=== PATIENT | female | born 2000 | race Caucasian/White ===

== ENCOUNTER 2021-12-18 13:15 | Inpatient (IN) | payer MEDICAID ==
[~2021-12-18] VITALS: Ht 157.5 cm; Wt 71.6 kg
[2021-12-18] VITALS (12 sets, daily range): BP systolic 115–142; BP diastolic 59–96
[2021-12-18] MEDS ORDERED: propofol 1000mg/100ml bottle 100 ML IV ONE (17:05)
[2021-12-18] MEDS ORDERED: FENTANYL CITRATE/D5W/PF 100 ML IV PRN (17:10)
[2021-12-18] MEDS ORDERED: acetylcysteine 200 MG/ml 4ml vial INH ONE (17:25)
--- NOTE | 2021-12-18 17:27 | NUR ---
Patients sister called to leave her number: Cora Joseph: [phone]
[2021-12-18] MEDS: FENTANYL-0.9 % NACL/PF 100 ML IV PRN ×2 (17:29→21:32)
[2021-12-18] MEDS ORDERED: ondansetron/PF 4mg/2ml inj IV PRN (18:30)
[2021-12-18] MEDS ORDERED: magnesium hydroxide 30ml (MOM) UD suspension PO PRN (18:30)
[2021-12-18] MEDS ORDERED: potassium Cl 20 mEq SR tablet PO PRN (18:30)
[2021-12-18] MEDS ORDERED: mag hydrox/Alum hydrox/simeth 30ml oral suspension PO PRN (18:30)
[2021-12-18] MEDS ORDERED: acetaminophen 325mg tablet PO PRN (18:30)
[2021-12-18] MEDS ORDERED: magnesium Cl slow-release 64mg tablet PO PRN (18:30)
[2021-12-18] MEDS ORDERED: magnesium 4gm in 100ml NS 100 ML IV PRN (18:30)
[2021-12-18] MEDS ORDERED: magnesium 2GM in 50ml NS 50 ML IV PRN (18:30)
--- NOTE | 2021-12-18 18:30 | NUR ---
Patient was wheeled into the unit by E[facility] in a hemodynamically stable condition as vital signs were within normal range,patient is moderately sedated with jad 100mcg/kg/hr, and propofol 12mcg/kg/min, pupil reactive and equal, patient on a ventilatory support with a size 7 ET tube, 24cm on lip, patient is a PRVC MODE, inspiratory wheeze reported and noted on the lower lobe with thick secretion.Patient is in sinus rhythm. Orogastric tube connected to intermittent drainage on admission. Patient has a cruz catheter with adequate output. Skin appears intact but blanching noted on the heel. 17;[address] Pagan for possible atelectasis of the left lower lobe, a total of 12mcg propofol bolus and 100mcg of jad bolus administered as per Doctor's order, very thick secretion noted.
[2021-12-18] MEDS: dextrose 5%-normal saline 1,000 ML IV SCH (19:12)
[2021-12-18 19:15] LABS: MAGNESIUM 1.9 MG/DL (1.5-2.4); POTASSIUM 3.3 MMOL/L (3.5-5.1)
[2021-12-18 19:17] LABS: ABG BASE EXCESS -2.7 mmol/L (-2.0-2.0); ABG HCO3 21.8 mmol/L (22.0-26.0); ABG OXYGEN SATURATION 97.2 % (94-97); ABG PCO2 (T) 36.6 mmHg (32.0-45.0); ABG PO2 (T) 96.6 mmHg (75.0-100.0); ALLEN'S TEST POSITIVE; FCOHb 0.3 % (0.0-3.9); FMetHb 0.5 % (0.0-1.5); FO2Hb 96.4 % (94-97); PATIENT TEMPERATURE 36.6; PEEP 8 cm H2O; RESPIRATORY RATE 16 b/min; TIDAL VOLUME 400 mL; TOTAL HEMOGLOBIN 13.2 G/dl (12.0-16.0)
[2021-12-18] MEDS ORDERED: PARO40TA4 PO (19:20)
[2021-12-18] MEDS ORDERED: AMIT-189 PO (19:20)
[2021-12-18] MEDS ORDERED: PARO20TA6 PO (19:20)
[2021-12-18] MEDS ORDERED: ALBU17AE26 PO (19:23)
[2021-12-18] MEDS: potassium CL 10mEq/100ml bag 100 ML IV PRN ×2 (19:31→20:17)
[2021-12-18] MEDS: K and/or MAG REPLACEMENT MC SCH (19:31)
[2021-12-18] MEDS: docusate sod 100mg capsule PO SCH (19:40)
[2021-12-18] MEDS: albuterol 2.5 MG/3 ML nebule NEB SCH (20:26)
[2021-12-18] MEDS: acetylcysteine 200 MG/ml 4ml vial INH SCH (20:26)
[2021-12-18] MEDS: albuterol 2.5 MG/3 ML nebule NEB PRN (20:26)
[2021-12-19] VITALS (28 sets, daily range): BP systolic 102–161; BP diastolic 46–105
[2021-12-19] MEDS ORDERED: propofol 1000mg/100ml bottle 100 ML IV SCH (00:10)
[2021-12-19] MEDS ORDERED: propofol 1000mg/100ml bottle 100 ML IV ONE (00:55)
[2021-12-19] MEDS: FENTANYL-0.9 % NACL/PF 100 ML IV PRN ×5 (01:34→21:48)
[2021-12-19 02:31] LABS: BASOPHILS # (AUTO) 0.1 X10'3 (0-0.2); BASOPHILS % (AUTO) 0.4 % (0-1); EOSINOPHILS # (AUTO) 0.4 X10'3 (0-0.9); EOSINOPHILS % (AUTO) 3.1 % (0-6); HEMATOCRIT 34.4 % (35.0-45.0); HEMOGLOBIN 11.4 g/dl (12.0-16.0); LYMPHOCYTES # (AUTO) 2.2 X10'3 (1.1-4.8); LYMPHOCYTES % (AUTO) 16.9 % (21-51); MEAN CORPUSCULAR HEMOGLOBIN 32.4 PG (27.0-31.0); MEAN CORPUSCULAR HGB CONC 33.1 g/dL (33.0-36.5); MEAN CORPUSCULAR VOLUME 97.8 FL (78-98); MEAN PLATELET VOLUME 6.4 FL (7.4-10.4); MONOCYTES % (AUTO) 7.6 % (2-12); NEUTROPHILS # (AUTO) 9.4 X10'3 (1.8-7.7); PLATELET COUNT 271 X10'3 (140-440); RED BLOOD COUNT 3.52 X10'6 (4.20-5.60); RED CELL DISTRIBUTION WIDTH 14.2 % (11.5-14.5)
[2021-12-19 02:51] LABS: ALANINE AMINOTRANSFERASE 16 U/L (12-78); ALBUMIN 2.3 G/DL (3.4-5.0); ALBUMIN/GLOBULIN RATIO 0.8 (1.1-1.5); ALKALINE PHOSPHATASE 63 IU/L (46-116); ANION GAP 7 (8-16); ASPARTATE AMINO TRANSFERASE 17 U/L (10-37); BILIRUBIN,TOTAL 0.2 MG/DL (0.1-1.0); BLOOD UREA NITROGEN 4 MG/DL (7-18); BUN/CREATININE RATIO 6.7 (6.6-38.0); CALCIUM 7.4 MG/DL (8.5-10.1); CHLORIDE 112 MMOL/L (99-107); GLUCOSE 92 MG/DL (70-104); MAGNESIUM 1.8 MG/DL (1.5-2.4); PHOSPHORUS 2.8 MG/DL (2.3-4.5); POTASSIUM 3.3 MMOL/L (3.5-5.1); SODIUM 144 MMOL/L (135-145); TOTAL PROTEIN 5.3 G/DL (6.4-8.2); TRIGLYCERIDES 124 MG/DL (20-135); eGFR > 90 ML/MIN
[2021-12-19] MEDS: albuterol 2.5 MG/3 ML nebule NEB SCH ×4 (02:54→21:50)
[2021-12-19] MEDS: acetylcysteine 200 MG/ml 4ml vial INH SCH (02:54)
[2021-12-19] MEDS: albuterol 2.5 MG/3 ML nebule NEB PRN (02:54)
[2021-12-19 03:08] LABS: ABG BASE EXCESS 0.8 mmol/L (-2.0-2.0); ABG HCO3 25.1 mmol/L (22.0-26.0); ABG OXYGEN SATURATION 97.3 % (94-97); ABG PCO2 (T) 39.4 mmHg (32.0-45.0); ALLEN'S TEST POSITIVE; FCOHb 0.3 % (0.0-3.9); FMetHb 0.4 % (0.0-1.5); FO2Hb 96.6 % (94-97); PATIENT TEMPERATURE 37.4; PEEP 8 cm H2O; RESPIRATORY RATE 16 b/min; TIDAL VOLUME 400 mL; TOTAL HEMOGLOBIN 12.4 G/dl (12.0-16.0)
[2021-12-19] MEDS ORDERED: thiamine 100mg/ml 2ml inj. IV ONE (04:35)
[2021-12-19] MEDS: potassium CL 10mEq/100ml bag 100 ML IV PRN ×2 (05:32→07:23)
[2021-12-19] MEDS: pantoprazole 40MG/NS 100ML BAG 100 ML IV SCH (07:19)
[2021-12-19] MEDS: enoxaparin 40mg/0.4ml syringe SUBCUT SCH (07:21)
[2021-12-19] MEDS: dextrose 5%-normal saline 1,000 ML IV SCH ×2 (07:22→21:48)
[2021-12-19] MEDS: docusate sod 100mg capsule PO SCH ×2 (07:22→20:33)
[2021-12-19] MEDS ORDERED: MVI, adult No.4 with vit. K 10 ML in dextrose 5% water 500ml 500 ML IV SCH ×2 (08:00)
[2021-12-19] MEDS: K and/or MAG REPLACEMENT MC SCH ×2 (08:00→20:00)
[2021-12-19] MEDS: dexmedetomidine/D5W 100mL 100 ML IV SCH ×3 (08:54→20:32)
--- NOTE | 2021-12-19 11:50 | NUR ---
I have reviewed assessment by research intern Addendum: 12/19/21 at [address] disregard
--- NOTE | 2021-12-19 11:50 | NUR ---
Initial: Pt admit dx overdose, suicide attempt, atelectasis, and acute respiratory failure w/ a hx of anxiety and depression per EMR. Pt is mechanically ventilated, and per MD at rounds pt is being titrated off of propofol and to be extubated today. Pt is currently NPO, though recommend advancing to Regular diet. Also recommend Folic acid and Thiamine supplementation given hx EtoH abuse per EMR. LBM pending,receiving routine Colace per EMR. Will continue to follow for nutrition intervention needs this admit. Recommendations: 1. Upon extubation, advance to Regular diet as tolerated/per MD 2. Routine Folic acid and Thiamine; pending MD approval 2. Routine bowel care 3. Weekly scaled wts Addendum: 12/19/21 at [address] Amended: Links added. Addendum: 12/19/21 at [address] I have reviewed assessment by internet sales representative
[2021-12-19] MEDS ORDERED: ALBU90AE IH (12:29)
[2021-12-19] MEDS ORDERED: OLANZapine **IM** 10 mg inj. IM ONE (13:30)
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
--- NOTE | 2021-12-19 19:00 | NUR ---
assumed care , family at bedside , patient very restless , agitated , restless kept getting up , pulled her RIJ earlier , tachycardic MD here orders recieved .
[2021-12-19] MEDS: haloperidol lactate 5mg/ml inj IM PRN (19:07)
[2021-12-19] MEDS: OLANZAPINE 5 MG TABLET PO SCH (20:32)
[2021-12-19] MEDS: sennosides 8.6mg tablet PO SCH (20:32)
--- NOTE | 2021-12-19 22:00 | NUR ---
family went home , still awake and hallucinating , claimed please leave my baby alone .
[2021-12-20] VITALS (18 sets, daily range): BP systolic 113–150; BP diastolic 56–101
[2021-12-20] MEDS: dexmedetomidine/D5W 100mL 100 ML IV SCH ×3 (00:34→09:10)
[2021-12-20] MEDS: albuterol 2.5 MG/3 ML nebule NEB SCH (03:00)
[2021-12-20] MEDS: haloperidol lactate 5mg/ml inj IM PRN ×3 (03:06→22:22)
--- NOTE | 2021-12-20 03:48 | NUR ---
still awake at this time but stated calming down at this time , vitals stable , precedex still on mav dose and second haldol IM given , heart rate slowdown to above 90s , remain on 2l /nc with o2 sats above 90s ,BP stable .
[2021-12-20 05:13] LABS: BASOPHILS % (AUTO) 0.1 % (0-1); EOSINOPHILS % (AUTO) 0.2 % (0-6); HEMATOCRIT 40.1 % (35.0-45.0); HEMOGLOBIN 13.5 g/dl (12.0-16.0); LYMPHOCYTES # (AUTO) 1.4 X10'3 (1.1-4.8); LYMPHOCYTES % (AUTO) 7.6 % (21-51); MEAN CORPUSCULAR HEMOGLOBIN 32.2 PG (27.0-31.0); MEAN CORPUSCULAR HGB CONC 33.6 g/dL (33.0-36.5); MEAN CORPUSCULAR VOLUME 95.7 FL (78-98); MEAN PLATELET VOLUME 6.3 FL (7.4-10.4); MONOCYTES # (AUTO) 1.2 X10'3 (0-0.9); MONOCYTES % (AUTO) 6.8 % (2-12); NEUTROPHILS # (AUTO) 15.5 X10'3 (1.8-7.7); NEUTROPHILS % (AUTO) 85.3 % (42-75); PLATELET COUNT 278 X10'3 (140-440); RED BLOOD COUNT 4.19 X10'6 (4.20-5.60); RED CELL DISTRIBUTION WIDTH 13.8 % (11.5-14.5); WHITE BLOOD COUNT 18.2 X10'3 (4.5-11.0)
[2021-12-20 05:26] LABS: ALANINE AMINOTRANSFERASE 30 U/L (12-78); ALBUMIN 3.1 G/DL (3.4-5.0); ALBUMIN/GLOBULIN RATIO 0.8 (1.1-1.5); ALKALINE PHOSPHATASE 76 IU/L (46-116); ANION GAP 9 (8-16); ASPARTATE AMINO TRANSFERASE 47 U/L (10-37); BILIRUBIN,TOTAL 0.5 MG/DL (0.1-1.0); BLOOD UREA NITROGEN 2 MG/DL (7-18); BUN/CREATININE RATIO 3.4 (6.6-38.0); CALCIUM 8.6 MG/DL (8.5-10.1); CHLORIDE 104 MMOL/L (99-107); CREATININE 0.59 MG/DL (0.40-0.90); GLUCOSE 119 MG/DL (70-104); POTASSIUM 3.6 MMOL/L (3.5-5.1); SODIUM 139 MMOL/L (135-145); TOTAL CARBON DIOXIDE 25.7 MMOL/L (24-32); TOTAL PROTEIN 7.2 G/DL (6.4-8.2); TRIGLYCERIDES 95 MG/DL (20-135); eGFR > 90 ML/MIN
[2021-12-20 05:39] LABS: MAGNESIUM 1.5 MG/DL (1.5-2.4)
--- NOTE | 2021-12-20 06:33 | NUR ---
Problems reprioritized. Patient report given, questions answered & plan of care reviewed with LEXIE MCKENZIE.
[2021-12-20] MEDS ORDERED: OLANZapine **IM** 10 mg inj. IM ONE (07:55)
[2021-12-20] MEDS: OLANZAPINE 5 MG TABLET PO SCH ×2 (08:00→21:08)
[2021-12-20] MEDS: K and/or MAG REPLACEMENT MC SCH ×2 (08:00→20:00)
[2021-12-20] MEDS: pantoprazole 40MG/NS 100ML BAG 100 ML IV SCH (08:00)
[2021-12-20] MEDS: enoxaparin 40mg/0.4ml syringe SUBCUT SCH (08:00)
[2021-12-20] MEDS: docusate sod 100mg capsule PO SCH ×2 (08:00→20:00)
[2021-12-20] MEDS: thiamine 100mg tablet PO SCH (11:08)
[2021-12-20] MEDS: multivitamins, therapeutics tablet PO SCH (11:08)
[2021-12-20] MEDS: folic acid 1mg tablet PO SCH (11:08)
[2021-12-20] MEDS: sennosides 8.6mg tablet PO SCH (21:00)
[2021-12-21] MEDS: dextrose 5%-normal saline 1,000 ML IV SCH ×2 (00:04→16:15)
[2021-12-21 02:00] VITALS: BP 134/76
[2021-12-21 07:00] VITALS: BP 121/77
[2021-12-21 07:26] LABS: BASOPHILS # (AUTO) 0.1 X10'3 (0-0.2); BASOPHILS % (AUTO) 0.5 % (0-1); EOSINOPHILS # (AUTO) 0.4 X10'3 (0-0.9); EOSINOPHILS % (AUTO) 3.5 % (0-6); HEMATOCRIT 41.5 % (35.0-45.0); HEMOGLOBIN 13.8 g/dl (12.0-16.0); LYMPHOCYTES # (AUTO) 1.8 X10'3 (1.1-4.8); LYMPHOCYTES % (AUTO) 17.5 % (21-51); MEAN CORPUSCULAR HEMOGLOBIN 32.3 PG (27.0-31.0); MEAN CORPUSCULAR HGB CONC 33.2 g/dL (33.0-36.5); MEAN CORPUSCULAR VOLUME 97.3 FL (78-98); MEAN PLATELET VOLUME 6.4 FL (7.4-10.4); MONOCYTES % (AUTO) 9.9 % (2-12); NEUTROPHILS # (AUTO) 7.2 X10'3 (1.8-7.7); NEUTROPHILS % (AUTO) 68.6 % (42-75); PLATELET COUNT 285 X10'3 (140-440); RED BLOOD COUNT 4.26 X10'6 (4.20-5.60); RED CELL DISTRIBUTION WIDTH 13.8 % (11.5-14.5); WHITE BLOOD COUNT 10.5 X10'3 (4.5-11.0)
[2021-12-21 07:57] LABS: ALANINE AMINOTRANSFERASE 41 U/L (12-78); ALBUMIN 2.9 G/DL (3.4-5.0); ALBUMIN/GLOBULIN RATIO 0.7 (1.1-1.5); ALKALINE PHOSPHATASE 64 IU/L (46-116); ANION GAP 11 (8-16); ASPARTATE AMINO TRANSFERASE 54 U/L (10-37); BILIRUBIN,TOTAL 0.3 MG/DL (0.1-1.0); BLOOD UREA NITROGEN 11 MG/DL (7-18); BUN/CREATININE RATIO 17.7 (6.6-38.0); CALCIUM 8.9 MG/DL (8.5-10.1); CHLORIDE 105 MMOL/L (99-107); CREATININE 0.62 MG/DL (0.40-0.90); GLUCOSE 69 MG/DL (70-104); MAGNESIUM 1.9 MG/DL (1.5-2.4); PHOSPHORUS 4.1 MG/DL (2.3-4.5); POTASSIUM 3.2 MMOL/L (3.5-5.1); SODIUM 144 MMOL/L (135-145); TOTAL CARBON DIOXIDE 27.9 MMOL/L (24-32); eGFR > 90 ML/MIN
[2021-12-21] MEDS: K and/or MAG REPLACEMENT MC SCH ×2 (08:00→18:30)
[2021-12-21] MEDS: docusate sod 100mg capsule PO SCH ×2 (09:18→20:00)
[2021-12-21] MEDS: thiamine 100mg tablet PO SCH (09:18)
[2021-12-21] MEDS: pantoprazole 40mg Tablet.DR PO SCH (09:19)
[2021-12-21] MEDS: folic acid 1mg tablet PO SCH (09:19)
[2021-12-21] MEDS: multivitamins, therapeutics tablet PO SCH (09:24)
[2021-12-21] MEDS: OLANZAPINE 5 MG TABLET PO SCH ×2 (09:29→21:02)
[2021-12-21] MEDS: enoxaparin 40mg/0.4ml syringe SUBCUT SCH (09:30)
[2021-12-21 11:00] VITALS: BP 117/79
[2021-12-21 15:00] VITALS: BP 119/74
--- NOTE | 2021-12-21 16:00 | NUR ---
Reassessment: Pt extubated PO remains poor since diet advanced 12/20 AM 25% first two regular meals w/ 0% dinner last night and breakfast this AM not meeting needs. Pt now on 5150, AOx2/confused w/ sitter, Glu 69mg/dl this AM w/ D5 stopped 12/20 per EMR. KEANU paged MD regarding f/u Glu if agreeable given last Glu 69mg/dl at 0630 this AM per EMR. RD d/w RN regarding pt documented as independent w/ feeding though AOx2/confused w/ sitter, poor PO trends, and low Glu. RN reports pt takes in fluids well drinking multiple juices today and family encouraged to bring in foods from outside including fast foods as pt more likely to eat than "hospital food". KEANU d/w RN regarding ONS options given fluid intake; RN agrees pt likely to drink smoothie TIDWM and Ensure Enlives TID; dietary and MD notified. LBM 12/20 receiving routine colace. Will continue to monitor for further nutrition intervention needs. Recommendations: 1. Continue regular diet; food from outside if pt will eat given poor PO trends; smoothie TIDWM; encourage PO 2. Ensure Enlive TIDWM; pending MD verification in EMR 3. Routine Folic acid, Thiamine, MVI for etoh hx 4. Routine bowel care 5. Weekly scaled wts Addendum: 12/21/21 at [address] Amended: Links added.
[2021-12-21] MEDS: dexmedetomidine/D5W 100mL 100 ML IV SCH (17:37)
[2021-12-21 18:51] VITALS: BP 112/75
[2021-12-21] MEDS: albuterol 2.5 MG/3 ML nebule NEB SCH (20:11)
[2021-12-21] MEDS: sennosides 8.6mg tablet PO SCH (20:53)
[2021-12-21] MEDS: potassium Cl 20 mEq SR tablet PO PRN (21:02)
[2021-12-21 22:00] VITALS: BP 117/72
[2021-12-22 02:00] VITALS: BP 122/68
[2021-12-22] MEDS: albuterol 2.5 MG/3 ML nebule NEB SCH ×4 (02:31→20:11)
[2021-12-22] MEDS: dextrose 5%-normal saline 1,000 ML IV SCH (02:45)
[2021-12-22 06:00] VITALS: BP 126/82
[2021-12-22 06:31] LABS: BASOPHILS % (AUTO) 0.6 % (0-1); EOSINOPHILS # (AUTO) 0.4 X10'3 (0-0.9); EOSINOPHILS % (AUTO) 5.9 % (0-6); HEMATOCRIT 40.8 % (35.0-45.0); HEMOGLOBIN 13.9 g/dl (12.0-16.0); LYMPHOCYTES # (AUTO) 1.9 X10'3 (1.1-4.8); LYMPHOCYTES % (AUTO) 25.2 % (21-51); MEAN CORPUSCULAR HEMOGLOBIN 32.7 PG (27.0-31.0); MEAN CORPUSCULAR HGB CONC 33.9 g/dL (33.0-36.5); MEAN CORPUSCULAR VOLUME 96.3 FL (78-98); MEAN PLATELET VOLUME 6.4 FL (7.4-10.4); MONOCYTES # (AUTO) 1.1 X10'3 (0-0.9); NEUTROPHILS # (AUTO) 4.1 X10'3 (1.8-7.7); NEUTROPHILS % (AUTO) 53.3 % (42-75); PLATELET COUNT 302 X10'3 (140-440); RED BLOOD COUNT 4.24 X10'6 (4.20-5.60); RED CELL DISTRIBUTION WIDTH 13.4 % (11.5-14.5); WHITE BLOOD COUNT 7.6 X10'3 (4.5-11.0)
[2021-12-22] MEDS: pantoprazole 40mg Tablet.DR PO SCH (06:46)
[2021-12-22] MEDS: potassium Cl 20 mEq SR tablet PO PRN (06:47)
[2021-12-22 06:53] LABS: ALANINE AMINOTRANSFERASE 55 U/L (12-78); ALBUMIN 2.9 G/DL (3.4-5.0); ALBUMIN/GLOBULIN RATIO 0.7 (1.1-1.5); ALKALINE PHOSPHATASE 57 IU/L (46-116); ANION GAP 3 (8-16); ASPARTATE AMINO TRANSFERASE 51 U/L (10-37); BILIRUBIN,TOTAL 0.2 MG/DL (0.1-1.0); BLOOD UREA NITROGEN 11 MG/DL (7-18); BUN/CREATININE RATIO 15.3 (6.6-38.0); CALCIUM 8.6 MG/DL (8.5-10.1); CHLORIDE 106 MMOL/L (99-107); CREATININE 0.72 MG/DL (0.40-0.90); GLUCOSE 92 MG/DL (70-104); MAGNESIUM 2.1 MG/DL (1.5-2.4); PHOSPHORUS 3.9 MG/DL (2.3-4.5); POTASSIUM 3.3 MMOL/L (3.5-5.1); SODIUM 137 MMOL/L (135-145); TOTAL CARBON DIOXIDE 28.4 MMOL/L (24-32); TOTAL PROTEIN 6.8 G/DL (6.4-8.2); eGFR > 90 ML/MIN
[2021-12-22] MEDS: folic acid 1mg tablet PO SCH (08:41)
[2021-12-22] MEDS: docusate sod 100mg capsule PO SCH ×2 (08:41→19:58)
[2021-12-22] MEDS: multivitamins, therapeutics tablet PO SCH (08:41)
[2021-12-22] MEDS: OLANZAPINE 5 MG TABLET PO SCH ×2 (08:41→19:58)
[2021-12-22] MEDS: thiamine 100mg tablet PO SCH (08:41)
[2021-12-22] MEDS: enoxaparin 40mg/0.4ml syringe SUBCUT SCH (08:42)
[2021-12-22 11:00] VITALS: BP 119/75
[2021-12-22 15:00] VITALS: BP 119/99
[2021-12-22 18:00] VITALS: BP 143/87
[2021-12-22] MEDS: K and/or MAG REPLACEMENT MC SCH (20:00)
[2021-12-22] MEDS: sennosides 8.6mg tablet PO SCH (20:00)
[2021-12-22 22:00] VITALS: BP 119/75
[2021-12-23] MEDS: albuterol 2.5 MG/3 ML nebule NEB SCH ×2 (03:00→07:30)
--- NOTE | 2021-12-23 06:14 | NUR ---
Problems reprioritized. Patient report given, questions answered & plan of care reviewed with Judith RN.
--- NOTE | 2021-12-23 06:30 | NUR ---
Patient in room PCU 3020. I have received report from Tyrone MCKENZIE and had the opportunity to ask questions and assume patient care.
[2021-12-23 07:02] VITALS: BP 102/56
[2021-12-23 07:09] LABS: BASOPHILS # (AUTO) 0.1 X10'3 (0-0.2); BASOPHILS % (AUTO) 0.8 % (0-1); EOSINOPHILS # (AUTO) 0.3 X10'3 (0-0.9); EOSINOPHILS % (AUTO) 3.9 % (0-6); HEMATOCRIT 41.3 % (35.0-45.0); LYMPHOCYTES # (AUTO) 1.3 X10'3 (1.1-4.8); LYMPHOCYTES % (AUTO) 18.1 % (21-51); MEAN CORPUSCULAR HEMOGLOBIN 32.8 PG (27.0-31.0); MEAN CORPUSCULAR HGB CONC 33.8 g/dL (33.0-36.5); MEAN CORPUSCULAR VOLUME 96.9 FL (78-98); MEAN PLATELET VOLUME 6.4 FL (7.4-10.4); MONOCYTES # (AUTO) 0.9 X10'3 (0-0.9); MONOCYTES % (AUTO) 13.1 % (2-12); NEUTROPHILS # (AUTO) 4.6 X10'3 (1.8-7.7); NEUTROPHILS % (AUTO) 64.1 % (42-75); PLATELET COUNT 324 X10'3 (140-440); RED BLOOD COUNT 4.26 X10'6 (4.20-5.60); RED CELL DISTRIBUTION WIDTH 13.6 % (11.5-14.5); WHITE BLOOD COUNT 7.2 X10'3 (4.5-11.0)
[2021-12-23 07:15] LABS: ALANINE AMINOTRANSFERASE 45 U/L (12-78); ALBUMIN 3.1 G/DL (3.4-5.0); ALBUMIN/GLOBULIN RATIO 0.8 (1.1-1.5); ALKALINE PHOSPHATASE 58 IU/L (46-116); ANION GAP 10 (8-16); ASPARTATE AMINO TRANSFERASE 28 U/L (10-37); BILIRUBIN,TOTAL 0.2 MG/DL (0.1-1.0); BLOOD UREA NITROGEN 9 MG/DL (7-18); BUN/CREATININE RATIO 13.8 (6.6-38.0); CHLORIDE 105 MMOL/L (99-107); CREATININE 0.65 MG/DL (0.40-0.90); GLUCOSE 89 MG/DL (70-104); PHOSPHORUS 4.2 MG/DL (2.3-4.5); POTASSIUM 3.4 MMOL/L (3.5-5.1); SODIUM 142 MMOL/L (135-145); TOTAL CARBON DIOXIDE 26.9 MMOL/L (24-32); TOTAL PROTEIN 7.2 G/DL (6.4-8.2); eGFR > 90 ML/MIN
[2021-12-23 07:31] LABS: MAGNESIUM 2.1 MG/DL (1.5-2.4)
[2021-12-23] MEDS: K and/or MAG REPLACEMENT MC SCH (08:00)
[2021-12-23] MEDS: thiamine 100mg tablet PO SCH (08:03)
[2021-12-23] MEDS: OLANZAPINE 5 MG TABLET PO SCH (08:03)
[2021-12-23] MEDS: multivitamins, therapeutics tablet PO SCH (08:03)
[2021-12-23] MEDS: folic acid 1mg tablet PO SCH (08:03)
[2021-12-23] MEDS: pantoprazole 40mg Tablet.DR PO SCH (08:03)
[2021-12-23] MEDS: docusate sod 100mg capsule PO SCH (08:03)
[2021-12-23] MEDS: enoxaparin 40mg/0.4ml syringe SUBCUT SCH (08:04)
[2021-12-23] MEDS ORDERED: magnesium 2GM in 50ml NS 50 ML IV PRN (10:00)
[2021-12-23] MEDS ORDERED: potassium Cl 20 mEq SR tablet PO PRN ×2 (10:00)
[2021-12-23] MEDS ORDERED: magnesium Cl slow-release 64mg tablet PO PRN (10:00)
[2021-12-23] MEDS ORDERED: magnesium 4gm in 100ml NS 100 ML IV PRN (10:00)
[2021-12-23] MEDS ORDERED: potassium CL 10mEq/100ml bag 100 ML IV PRN (10:00)
[2021-12-23 11:00] VITALS: BP 115/71
[2021-12-23] MEDS ORDERED: FOLI0.4T6 PO (14:43)
[2021-12-23] MEDS ORDERED: THIA50TA10 PO (14:43)
[2021-12-23] MEDS ORDERED: MULT-25 PO (14:43)
[2021-12-23] MEDS ORDERED: PANT40TA54 PO (14:43)
[2021-12-23 15:00] VITALS: BP 119/78
--- NOTE | 2021-12-23 15:55 | NUR ---
Patient discharged home with family members. Went through discharge packet in detail, IV removed. Walked with patient to her families car. No further questions from patient at time of discharge.
[2021-12-23] MEDS ORDERED: K and/or MAG REPLACEMENT MC SCH (20:00)
== END 2021-12-23 15:46 | disposition home or self-care (01) | DRG 817 ==
LOC: ICU 2S 13:15 → UNDOADMIN 13:15 → ICU 2S 18:44 → PCU 3S 12-20 17:04
PROVIDERS: ADMIT Hospitalist; ATTEND Hospitalist
PROC: 5A1935Z Respiratory Ventilation, Less than 24 Consecutive Hours (ICD-10-PCS; principal; 2021-12-18)
PROC: 0BH17EZ Insertion of Endotracheal Airway into Trachea, Via Natural or Artificial Opening (ICD-10-PCS; 2021-12-18)
PROC: 0B9F8ZZ Drainage of Right Lower Lung Lobe, Via Natural or Artificial Opening Endoscopic (ICD-10-PCS; 2021-12-18)
DX: T43.012A Poisoning by tricyclic antidepressants, intentional self-harm, initial encounter (principal); J96.00 Acute respiratory failure, unspecified whether with hypoxia or hypercapnia; F19.10 Other psychoactive substance abuse, uncomplicated; F32.A Depression, unspecified; F41.9 Anxiety disorder, unspecified; J45.909 Unspecified asthma, uncomplicated; J98.11 Atelectasis; Z78.1 Physical restraint status; Y92.89 Other specified places as the place of occurrence of the external cause
CPT/HCPCS: 31628; 31645; 36415; 36600; 71045; 80053; 82803; 82948; 83735; 84100; 84132; 84443; 84478; 85018; 85025; 93005; 94002; 94003; 94640; 94760; 94799; C9113; G0378; J1630; J1650; J2704; J3010; J3411; J3480; J3490; J7042